=== PATIENT | male | born 1965 | race Hispanic/Latino ===

== ENCOUNTER 2017-03-05 07:39 | Outpatient (CLI) | payer MEDICARE ==
[2017-03-05 11:10] LABS: ALT (SGPT) 27 U/L (8-55); AST (SGOT) 33 U/L (5-34); Albumin 4.2 g/dL (3.5-5.0); Alkaline Phosphatase 61 U/L (40-150); Anion Gap 17 mmol/L (10-20); BUN (Urea Nitrogen) 20 mg/dL (8.4-25.7); Bilirubin, Total 1.1 mg/dL (0.2-1.2); Calc. Creatinine Clearance 0 mL/min (70-130); Calcium 9.8 mg/dL (7.8-10.44); Carbon Dioxide 25 mmol/L (22-29); Chloride 101 mmol/L (98-107); Estimated GFR-MDRD 42; Globulin 3.7 g/dL (2.4-3.5); Glucose 112 mg/dL (70-105); Potassium 4.8 mmol/L (3.5-5.1); Protein, Total 7.9 g/dL (6.0-8.3); Sodium 138 mmol/L (136-145)
[2017-03-05 14:43] LABS: Hemoglobin 13.9 g/dL (14.0-18.0); Lymphocytes 27 % (21-51); MDiff Complete? YES; Mean Corpuscular Hemoglobin 32.5 pg (27.0-31.0); Mean Corpuscular Volume 95.8 fl (80.0-94.0); Mean Platelet Volume 7.7 fL (7.4-10.4); Monocytes 6 % (0-10); Neutrophil 67 % (42-75); PLT Morphology Comment Appears Adequate; Platelet Count 205 thou/uL (130-400); RBC Distribution Width 11.1 % (11.5-14.5); Red Blood Cell (RBC) Count 4.29 mill/uL (4.70-6.10); White Blood Cell (WBC) Count 7.3 thou/uL (4.8-10.8)
[2017-03-05 17:43] LABS: HIV (1/2) Antibody/Antigen Non-Reactive (NonReactive)
== END 2017-03-05 07:40 | disposition home or self-care (01) ==
LOC: NAV LAB 07:39
PROVIDERS: ATTEND Internal Medicine Nephrology
DX: Z12.5 Encounter for screening for malignant neoplasm of prostate (principal); E78.5 Hyperlipidemia, unspecified; E03.9 Hypothyroidism, unspecified; Z94.0 Kidney transplant status
CPT/HCPCS: 36415; 80053; 80158; 85025; 87389

== ENCOUNTER 2019-06-07 09:14 | Outpatient (CLI) | payer MEDICARE, OTHER ==
--- NOTE | 2019-06-07 10:29 | RAD ---
EXAM: Single view of the abdomen HISTORY: History of renal transplant COMPARISON: None FINDINGS: Single view of the abdomen shows a nonspecific, nonobstructive bowel gas pattern. No suspi cious calcifications are seen. The bones are unremarkable. Surgical clips are seen in the right abdomen/pelvis. IMPRESSION: Nonobstructive bowel gas pattern.
--- NOTE | 2019-06-07 13:15 | ULT ---
RIGHT TRANSPLANT KIDNEY ULTRASOUND: 06/07/19 INDICATION: Transplanted kidney in the right lower quadrant. COMPARISON: Prior exam dated July 21, 2005. FINDINGS: The transplanted kidney measures 14.5 x 6.2 x 6.6 cm. The transplanted kidney renal cortical thickness is 0.7 cm, diminished from the comparison exam. There is symmetric flow throughout the transplanted kidney. No perinephric fluid collection or hydronephrosis is grossly evident. There is a small 1.4 cm cyst involving the lower aspect of the transplanted kidney. The [place] left kidney is atrophic measuring 6.3 x 3.5 x 3 cm. Small 1.1 cm cyst is seen within the [place] left kidney. The prevoid bladder volume is 81 mL. Postvoid bladder volume is 13 mL. IMPRESSION: 1. The transplanted right lower quadrant kidney demonstrates a small inferior pole right renal c yst. No hydronephrosis or perinephric fluid collection is evident. Renal cortical thickness is dimini shed from the comparison exam dated 2004, now measuring 0.6 cm where previously it measured up to 1.3 cm. 2. Atrophic [place] left kidney with renal cyst. POS: [facility]
== END 2019-06-07 09:15 | disposition home or self-care (01) ==
LOC: NAV ULT 09:14
PROVIDERS: ATTEND Internal Medicine Nephrology
DX: Z48.22 Encounter for aftercare following kidney transplant (principal); N28.1 Cyst of kidney, acquired
CPT/HCPCS: 74018; 76775